=== PATIENT | male | born 1955 | race Caucasian/White ===

== ENCOUNTER 2019-08-20 07:28 | Day surgery (SDC) | payer MEDICARE, OTHER ==
[~2019-08-20] VITALS: Ht 172.7 cm; Wt 76.8 kg
[2019-08-20 08:25] VITALS: BP 129/88
[2019-08-20] MEDS ORDERED: OXYC5CAP2 PO (08:39)
[2019-08-20] MEDS ORDERED: ZOLP5TAB6 PO (08:39)
[2019-08-20] MEDS ORDERED: SODIUM CHLORIDE 0.9% 1,000 ML IV SCH (09:00)
[2019-08-20] MEDS ORDERED: CEFAZOLIN PMX 1GM/50ML 50 ML IV ONE (09:00)
[2019-08-20] MEDS ORDERED: FENTANYL PF 100 MCG/2ML ONE (09:30)
[2019-08-20] MEDS ORDERED: MIDAZOLAM 1 MG/ML, 5ML ONE (09:30)
[2019-08-20] MEDS ORDERED: NALOXONE 1 MG/ML, 2ML ONE (09:31)
[2019-08-20] MEDS ORDERED: FLUMAZENIL 0.1 MG/1 ML, 5ML ONE (09:31)
[2019-08-20] MEDS ORDERED: LIDOCAINE 1%, 20ML ONE (09:33)
[2019-08-20] MEDS ORDERED: LIDOCAINE 1%, 10ML ONE (10:10)
[2019-08-20] MEDS ORDERED: OXYcodone IR 5MG TABLET PO PRN (12:30)
== END 2019-08-20 12:30 | disposition home or self-care (01) ==
LOC: OUT 07:28
PROVIDERS: ATTEND Pathology Hematology
DX: C20 Malignant neoplasm of rectum (principal); Z79.899 Other long term (current) drug therapy; Z98.890 Other specified postprocedural states
CPT/HCPCS: 36561; 76937; 77001; 99156; 99157; C1788; C1894; J0690; J1642; J2250; J3010; J7030; J2310